=== PATIENT | male | born 1935 | race Caucasian/White ===

== ENCOUNTER 2021-08-11 13:16 | Inpatient (IN) | payer MEDICARE ==
[~2021-08-11] VITALS: Ht 185.4 cm; Wt 84.1 kg
[2021-08-11] MEDS ORDERED: ibuprofen tablet 400 MG TABLET PO ONE (17:35)
[2021-08-11] MEDS ORDERED: diphenhydrAMINE 50 mg/ml inj IV PRN (19:35)
[2021-08-11] MEDS ORDERED: magnesium hydroxide 30ml (MOM) UD suspension PO PRN (19:35)
[2021-08-11] MEDS ORDERED: acetaminophen 650mg rectal suppository RC PRN (19:35)
[2021-08-11] MEDS ORDERED: diphenhydrAMINE 25mg capsule PO PRN (19:35)
[2021-08-11] MEDS ORDERED: bisacodyl 10mg suppository rectal RC PRN (19:35)
[2021-08-11] MEDS ORDERED: mag hydrox/Alum hydrox/simeth 30ml oral suspension PO PRN (19:35)
[2021-08-11] MEDS ORDERED: HYDROcodone/acetaminophen 10/325mg tab PO PRN (19:35)
[2021-08-11] MEDS ORDERED: ondansetron 4mg rapidly disintigrating tab PO PRN (19:35)
[2021-08-11] MEDS ORDERED: HYDROcodone/acetaminophen 5mg/325mg tablet PO PRN (19:35)
[2021-08-11] MEDS ORDERED: acetaminophen 325mg tablet PO PRN ×2 (19:35)
[2021-08-11] MEDS ORDERED: ondansetron/PF 4mg/2ml inj IV PRN (19:35)
[2021-08-11] MEDS ORDERED: morphine 2 MG/ML inj. syringe IV PRN ×2 (19:35)
[2021-08-11] MEDS ORDERED: HYDROmorphone inj. 0.5 MG/0.5 ML DISP.SYRIN IV PRN (19:35)
[2021-08-11 19:58] LABS: BASOPHILS # (AUTO) 0.1 X10'3 (0-0.2); BASOPHILS % (AUTO) 0.7 % (0-1); EOSINOPHILS % (AUTO) 0.1 % (0-6); HEMATOCRIT 41.3 % (42.0-52.0); HEMOGLOBIN 13.8 g/dl (14.0-17.9); LYMPHOCYTES % (AUTO) 11.7 % (21-51); MEAN CORPUSCULAR HEMOGLOBIN 30.2 PG (27.0-31.0); MEAN CORPUSCULAR HGB CONC 33.4 g/dL (33.0-36.5); MEAN CORPUSCULAR VOLUME 90.2 FL (78-98); MEAN PLATELET VOLUME 8.9 FL (7.4-10.4); MONOCYTES # (AUTO) 0.7 X10'3 (0-0.9); MONOCYTES % (AUTO) 8.1 % (2-12); NEUTROPHILS # (AUTO) 6.8 X10'3 (1.8-7.7); NEUTROPHILS % (AUTO) 79.4 % (42-75); PLATELET COUNT 216 X10'3 (140-440); RED BLOOD COUNT 4.58 X10'6 (4.70-6.10); RED CELL DISTRIBUTION WIDTH 13.9 % (11.5-14.5); WHITE BLOOD COUNT 8.6 X10'3 (4.5-11.0)
[2021-08-11] MEDS ORDERED: docusate sod 100mg capsule PO SCH (20:00)
--- NOTE | 2021-08-11 20:00 | NUR ---
PT HAS BEEN ROOMED IN BED 16. ASSUMED CARE OF PT.
[2021-08-11] MEDS: normal saline 1000ml 1,000 ML IV SCH (20:11)
[2021-08-11 20:12] LABS: ALANINE AMINOTRANSFERASE 19 U/L (12-78); ALBUMIN 3.9 G/DL (3.4-5.0); ALBUMIN/GLOBULIN RATIO 1.1 (1.1-1.5); ALKALINE PHOSPHATASE 63 IU/L (46-116); ANION GAP 7 (8-16); ASPARTATE AMINO TRANSFERASE 14 U/L (10-37); BILIRUBIN,TOTAL 0.8 MG/DL (0.1-1.0); BLOOD UREA NITROGEN 10 MG/DL (7-18); BUN/CREATININE RATIO 9.2 (5.4-32.0); CALCIUM 9.1 MG/DL (8.5-10.1); CHLORIDE 102 MMOL/L (99-107); CREATININE 1.09 MG/DL (0.60-1.10); GLUCOSE 181 MG/DL (70-104); HEMOGLOBIN A1C 7.1 % (4.5-6.2); POTASSIUM 4.4 MMOL/L (3.5-5.1); SODIUM 137 MMOL/L (135-145); TOTAL CARBON DIOXIDE 28.4 MMOL/L (24-32); TOTAL PROTEIN 7.3 G/DL (6.4-8.2); eGFR 64 ML/MIN
[2021-08-11 20:19] LABS: APTT 26 SECONDS (22-32)
[2021-08-11 20:22] LABS: CREATINE KINASE 66 U/L (39-308); PHOSPHORUS 3.3 MG/DL (2.3-4.5)
[2021-08-11] MEDS: heparin, porcine 5000 units/ml vial SQ SCH (20:23)
[2021-08-11] MEDS ORDERED: temazepam 15mg capsule PO PRN (21:00)
[2021-08-11 23:33] VITALS: BP 143/77
[2021-08-12] MEDS ORDERED: TETanus/Pertussis (Acell)/Diphther VAC/PF (Tdap-Adult) 0.5ml syringe IMVAC ONE (04:30)
[2021-08-12] MEDS ORDERED: glucagon, human recombinant 1mg kit SUBCUT PRN (04:30)
[2021-08-12] MEDS ORDERED: dextrose 50%-water 50ml dispensing syringe IV PRN ×2 (04:30)
[2021-08-12] MEDS ORDERED: DEXTROSE 15 GM of carb/4 tabs (each vial/BOTTLE has 4 tablets) PO PRN ×2 (04:30)
[2021-08-12] MEDS ORDERED: MESSAGE TO PHARMACY PO ONE (04:30)
[2021-08-12] MEDS ORDERED: insulin Lispro (HumaLOG) vial - multi-dose SQ SCH (04:30)
[2021-08-12] MEDS: normal saline 1000ml 1,000 ML IV SCH (05:23)
[2021-08-12 06:00] VITALS: BP 122/88
--- NOTE | 2021-08-12 06:10 | NUR ---
Patient in room [facility] 4013. I have received report from Sunitha ESPOSITO and had the opportunity to ask questions and assume patient care.
[2021-08-12 06:46] LABS: BASOPHILS % (AUTO) 0.5 % (0-1); EOSINOPHILS # (AUTO) 0.1 X10'3 (0-0.9); EOSINOPHILS % (AUTO) 1.5 % (0-6); HEMATOCRIT 36.9 % (42.0-52.0); HEMOGLOBIN 12.5 g/dl (14.0-17.9); LYMPHOCYTES # (AUTO) 1.4 X10'3 (1.1-4.8); LYMPHOCYTES % (AUTO) 24.8 % (21-51); MEAN CORPUSCULAR HEMOGLOBIN 30.9 PG (27.0-31.0); MEAN CORPUSCULAR HGB CONC 33.9 g/dL (33.0-36.5); MEAN CORPUSCULAR VOLUME 91.1 FL (78-98); MEAN PLATELET VOLUME 8.8 FL (7.4-10.4); MONOCYTES # (AUTO) 0.6 X10'3 (0-0.9); MONOCYTES % (AUTO) 10.2 % (2-12); NEUTROPHILS # (AUTO) 3.6 X10'3 (1.8-7.7); PLATELET COUNT 181 X10'3 (140-440); RED BLOOD COUNT 4.06 X10'6 (4.70-6.10); RED CELL DISTRIBUTION WIDTH 14.2 % (11.5-14.5); WHITE BLOOD COUNT 5.7 X10'3 (4.5-11.0)
[2021-08-12 07:06] LABS: ALANINE AMINOTRANSFERASE 14 U/L (12-78); ALBUMIN 3.2 G/DL (3.4-5.0); ALBUMIN/GLOBULIN RATIO 1.1 (1.1-1.5); ALKALINE PHOSPHATASE 52 IU/L (46-116); ANION GAP 9 (8-16); ASPARTATE AMINO TRANSFERASE 12 U/L (10-37); BILIRUBIN,TOTAL 0.9 MG/DL (0.1-1.0); BLOOD UREA NITROGEN 12 MG/DL (7-18); CALCIUM 8.4 MG/DL (8.5-10.1); CHLORIDE 106 MMOL/L (99-107); CHOL/HDL RATIO 3.6 (0.00-4.99); CHOLESTEROL 164 MG/DL (0-200); CREATININE 0.92 MG/DL (0.60-1.10); GLUCOSE 127 MG/DL (70-104); HDL CHOLESTEROL 46 MG/DL (35-60); LDL CHOLESTEROL 100 MG/DL (50-100); POTASSIUM 4.2 MMOL/L (3.5-5.1); SODIUM 143 MMOL/L (135-145); TOTAL CARBON DIOXIDE 27.8 MMOL/L (24-32); TOTAL PROTEIN 6.1 G/DL (6.4-8.2); TRIGLYCERIDES 110 MG/DL (20-135); eGFR 78 ML/MIN
[2021-08-12] MEDS ORDERED: pantoprazole 40mg Tablet.DR PO SCH (07:30)
[2021-08-12] MEDS: heparin, porcine 5000 units/ml vial SQ SCH (08:00)
--- NOTE | 2021-08-12 09:16 | NUR ---
Diabetes consult; Noted pt w/ hx of DM A1c 7.1 well controlled for age. Written DM ed w/ RD contact info placed in pt chart Addendum: 08/12/21 at [address] Amended: Links added.
[2021-08-12 10:00] VITALS: BP 132/67
--- NOTE | 2021-08-12 11:25 | NUR ---
Caregiver/ride did not come to floor. DC papers instruct for follow up with primary and need for physical therapy per hospitalist.
== END 2021-08-12 11:25 | disposition home or self-care (01) | DRG 605 ==
LOC: ER 13:17 → ED HOLD 19:45 → ORTHO 4S 23:00
PROVIDERS: ADMIT Family Medicine; ATTEND Internal Medicine
DX: S70.02XA Contusion of left hip, initial encounter (principal); J90 Pleural effusion, not elsewhere classified; S80.212A Abrasion, left knee, initial encounter; S50.312A Abrasion of left elbow, initial encounter; S51.012A Laceration without foreign body of left elbow, initial encounter; E11.9 Type 2 diabetes mellitus without complications; E78.00 Pure hypercholesterolemia, unspecified; E78.5 Hyperlipidemia, unspecified; W01.0XXA Fall on same level from slipping, tripping and stumbling without subsequent striking against object, initial encounter; Y93.01 Activity, walking, marching and hiking; F03.90 Unspecified dementia, unspecified severity, without behavioral disturbance, psychotic disturbance, mood disturbance, and anxiety; R26.9 Unspecified abnormalities of gait and mobility; Y92.098 Other place in other non-institutional residence as the place of occurrence of the external cause; Y99.8 Other external cause status; Z79.82 Long term (current) use of aspirin
CPT/HCPCS: 36415; 71045; 72192; 73090; 73502; 73551; 80053; 80061; 82550; 83036; 83735; 83880; 84100; 84443; 84484; 85025; 85610; 85730; 87081; 90715; 97161; 97530; 99285; A6212; A6223; A6258; A6449; G0378; J1644; J1815; J7030

== ENCOUNTER 2024-03-20 14:06 | Emergency (ER) | payer MEDICARE ==
[~2024-03-20] VITALS: Ht 182.9 cm; Wt 81.8 kg
[2024-03-20 14:47] VITALS: BP 151/64; TEMP 98
[2024-03-20] MEDS ORDERED: ALBU8HFA INH (17:11)
[2024-03-20] MEDS ORDERED: PROM25TA14 PO (17:11)
[2024-03-20] MEDS ORDERED: AZIT250T PO (17:11)
[2024-03-20] MEDS ORDERED: BENZ-38 PO (17:11)
[2024-03-20] MEDS ORDERED: ACET-38 PO (17:11)
[2024-03-20] MEDS: ipratropium/albuterol 3ml nebule NEB STA (17:18)
[2024-03-20 17:20] VITALS: PULSE 80; RESP 16; O2SAT 96
[2024-03-20 17:26] VITALS: PULSE 83; RESP 18; O2SAT 99
[2024-03-20] MEDS: dexamethasone sod phosphate 10mg/ml inj PO STA (17:31)
== END 2024-03-20 17:35 | disposition home or self-care (01) ==
LOC: ER 14:07
DX: J20.9 Acute bronchitis, unspecified (principal); E78.00 Pure hypercholesterolemia, unspecified
CPT/HCPCS: 71045; 87502; 87503; 94640; 99284; J1100; 94760